=== PATIENT | female | born 1995 | race Caucasian/White ===

== ENCOUNTER → 2016-12-30 10:36 | Emergency (ER) | payer OTHER ==
[~2016-12-30 10:36] MED LIST: Acetaminophen TAB* 325 MG ONE
== END | disposition home or self-care (01) ==
LOC: UCCORT 10:36
DX: O92.29 Other disorders of breast associated with pregnancy and the puerperium (principal); N61.0 Mastitis without abscess; O99.63 Diseases of the digestive system complicating the puerperium; K21.9 Gastro-esophageal reflux disease without esophagitis; O99.53 Diseases of the respiratory system complicating the puerperium; J02.9 Acute pharyngitis, unspecified
CPT/HCPCS: 87070; 87651; 99211; A9270-GY; G0463

== ENCOUNTER 2017-02-05 14:53 | Emergency (ER) | payer OTHER ==
--- NOTE | 2017-02-05 16:02 | UC ---
Skin Complaint HPI - HPI Summary HPI Summary: Rash for the past week. She has seen flees and has pulled a few off of her thighs. It is mainly nir inner thighs and left upper chest. It spares the hands and wrists as well as groin. - History of Current Complaint Time Seen by Provider: 02/05/17 15:49 Stated Complaint: RASH Hx Obtained From: Patient ?: No Onset/Duration: Gradual Onset, Lasting Days Skin Exposure Onset/Duration: Days Ago Onset Severity: Moderate Location: Diffuse Aggravating Factor(s): Touch Alleviating Factor(s): Nothing Associated Signs & Symptoms: Positive: Rash - It is an itchy rash. - Allergy/Home Medications Allergies/Adverse Reactions: Allergies Allergy/AdvReac Type Severity Reaction Status Date / Time No Known Allergies Allergy Verified 02/05/17 15:59 Home Medications: Home Medications NK [No Home Medications Reported] 02/05/17 [History Confirmed 02/05/17] Review of Systems Skin: Rash All Other Systems Reviewed And Are Negative: Yes PMH/Surg Hx/FS Hx/Imm Hx Previously Healthy: Yes - Surgical History Surgical History: None - Family History Known Family History: Positive: Other - no related rashes. - Social History Lives: With Family Physical Exam Triage Information Reviewed: Yes Appearance: Well-Appearing, No Pain Distress, Well-Nourished Vital Signs Reviewed: Yes Eyes: Positive: Conjunctiva Clear ENT: Positive: Normal ENT inspection Neck: Positive: Supple, Nontender, No Lymphadenopathy Respiratory: Positive: Chest non-tender, Lungs clear, Normal breath sounds, No respiratory distress, No accessory muscle use Cardiovascular: Positive: RRR, No Murmur, Pulses Normal, Brisk Capillary Refill Abdomen Description: Positive: Nontender, No Organomegaly, Soft. Negative: Distended, Guarding Musculoskeletal: Positive: Strength Intact, ROM Intact, No Edema Neurological: Positive: Alert, Muscle Tone Normal Skin: Positive: rashes - Nir inner thigh macular papular rash and the same in a patch on the left chest. No hand or wrist involvement. Course/Dx - Course Course Of Treatment: rash without any signs of scabies. It may have started from a couch that she got donated to her from her aunt. - Diagnoses Provider Diagnoses: insect bites. rash. Discharge - Discharge Plan Condition: Good Disposition: HOME Prescriptions: Methylprednisolone [Medrol Dosepak 4 MG*] 4 mg PO .SEE CHASITY INSTRUCTION #21 tab Patient Education Materials: Acute Rash (ED) Referrals: No Primary Care Phys,NOPCP [Primary Care Provider] - Additional Instructions: Calmoseptin may help as well. REturn if this does not improve.
[2017-02-05 16:08] VITALS: BP 116/80
== END 2017-02-05 16:10 | disposition home or self-care (01) ==
LOC: UCCORT 14:53
DX: S70.362A Insect bite (nonvenomous), left thigh, initial encounter (principal); S70.361A Insect bite (nonvenomous), right thigh, initial encounter; S20.362A Insect bite (nonvenomous) of left front wall of thorax, initial encounter; W57.XXXA Bitten or stung by nonvenomous insect and other nonvenomous arthropods, initial encounter; Y93.9 Activity, unspecified; Y92.9 Unspecified place or not applicable; R21 Rash and other nonspecific skin eruption
CPT/HCPCS: 99211; G0463

== ENCOUNTER 2017-11-24 17:09 | Emergency (ER) | payer OTHER ==
--- NOTE | 2017-11-24 17:20 | UC ---
Complaint Female HPI - HPI Summary HPI Summary: 21 yo female presents with urinary burning and frequency for the last week and vaginal discharge for the last 3 days. She has been taking AZO supplements OTC for her urinary symptoms with mild relief for a day or two, but her symptoms will return. Has also noticed some thick white vaginal discharge with itching. She has an IUD in place for about a year and says that she has scant bleeding at random times, but no real period. Denies fever, chills, flank pain, abdominal pain, n/v/d/c, or pelvic pain. - History Of Current Complaint Stated Complaint: URINARY COMPLAINT Time Seen by Provider: 11/24/17 17:20 Hx Obtained From: Patient Hx Last Menstrual Period: IUD Onset/Duration: Gradual Onset Severity Currently: None - Allergies/Home Medications Allergies/Adverse Reactions: Allergies Allergy/AdvReac Type Severity Reaction Status Date / Time No Known Allergies Allergy Verified 11/24/17 17:38 Home Medications: Home Medications Topiramate [Topamax] 25 mg PO BID 11/24/17 [History Confirmed 11/24/17] PMH/Surg Hx/FS Hx/Imm Hx - Additional Past Medical History Additional PMH: None Previously Healthy: Yes - Surgical History Surgical History: None - Family History Known Family History: Positive: None - Social History Occupation: Employed Full-time Lives: With Family Alcohol Use: None Substance Use Type: None Smoking Status (MU): Never Smoked Tobacco - Immunization History Most Recent Influenza Vaccination: NOT CURRENT Review of Systems Constitutional: Negative Skin: Negative Respiratory: Negative Cardiovascular: Negative Gastrointestinal: Negative Genitourinary: Dysuria, Vaginal/Penile Discharge Neurological: Negative Psychological: Negative All Other Systems Reviewed And Are Negative: Yes Physical Exam - Summary Physical Exam Summary: GENERAL: NAD. WDWN. No pain distress. SKIN: No rashes, sores, lesions, or open wounds. NECK: Supple. Nontender. No lymphadenopathy. CHEST: CTAB. No r/r/w. No accessory muscle use. Breathing comfortably and in no distress. CV: RRR. Without m/r/g. Pulses intact. Cap refill <2seconds ABDOMEN: Soft. NTTP. No distention or guarding. No CVA tenderness. Bowel sounds present NEURO: Alert. CN II-XII grossly intact. PSYCH: Age appropriate behavior. Triage Information Reviewed: Yes Vital Signs: Vital Signs: Temp Pulse Resp BP Pulse Ox 98.8 F 82 16 120/84 100 11/24/17 17:32 11/24/17 17:32 11/24/17 17:32 11/24/17 17:32 11/24/17 17:32 Laboratory Tests 11/24/17 17:46 POC Urine Color Yellow POC Urine Clarity Cloudy POC Urine pH 6.0 POC Ur Specif [place] 1.020 POC Urine Protein Negative POC Ur Glucose (UA) Negative POC Urine Ketones Negative POC Urine Blood Trace-intact A POC Urine Nitrite Negative POC Urine Bilirubin Negative POC Urine Urobilinogen 0.2 POC U Leukocyte Esteras 2+ A Vital Signs Reviewed: Yes Pelvic Exam: Positive: External Exam Normal, No Cerv. Motion Tender, No Masses, Discharge - Mild thick white, Other - Jaqui RN assisted with exam. Negative: Active Bleeding, Blood, Cervicitis, Lesions, Mass, Ulcers Complaint Female Dx - Course Course Of Treatment: UA with signs of infection and pelvic exam suggestive for yeast. Pt declines STD testing at this time. Will treat for UTI and yeast infection. F/u prn - Differential Dx/Diagnosis Provider Diagnoses: UTI. Vaginal yeast infection Discharge - Sign-Out/Discharge Documenting (check all that apply): Patient Departure All imaging exams completed and their final reports reviewed: No Studies - Discharge Plan Condition: Stable Disposition: HOME Prescriptions: Fluconazole 150 MG (NF) [Diflucan 150 mg (NF)] 150 mg PO ONCE #2 tab Sulfamethox/Trimethoprim DS* [Bactrim DS 800/160 TAB*] 1 tab PO BID #10 tab Patient Education Materials: Urinary Tract Infection in Women (DC), Yeast Infection (ED) Referrals: Levi Kong MD [Primary Care Provider] - Additional Instructions: If you develop a fever, shortness of breath, chest pain, new or worsening symptoms - please call your PCP or go to the ED. - Billing Disposition and Condition Condition: STABLE Disposition: Home
--- OUTSIDE RECORDS SUMMARY | 2017-11-24 17:24 | XMS REPORT ---
:1995 External Reference #:[id number] Author Organization [facility] Address [address] [place] [address]/[address] [place] [address] Phone [phone] Care Team Providers Name Role Phone Roberto Reyna [employer] Care Team Information [employer] Unavailable Payers Type Date Identification Numbers Payment Provider Subscriber Commercial Effective: Policy Number: [id number] Aaron Doherty 2016 PayID: [id number] [address] [place] [address] [employer] Policy Number: [id number] Medicaid/[facility] Systems Sophia Doherty PayID: [id number] [address] [place] [address] Commercial Effective: 2015 Policy Number: Aaron Care Barbara Doherty [id number] Expires: 2016 PayID: [id number] [address] [place] [id number] Problems Description No Information Family History Date Family Member(s) Problem(s) Comments Mother 42 Mother Thyroid Disease Mother Heart Disease Children 1 SON BORN 12/07/16 Social History Type Date Description Comments Occupation [employer] Use Occasionally consumes alcohol Smoking Patient has never smoked Daily Caffeine Occasionally Allergies, Adverse Reactions, Alerts Date Description Reaction Status Severity Comments 04/16/2016 NKDA active Medications Medication Date Status Form Strength Qnty SIG Indications Ordering Provider Clobetasol 11/12 Active Cream 0.05% 60gm apply to R21 Dilan affected area Ahmad M., twice a day M.D. as needed Topamax 11/12 Active Tablets 50mg 60tab 1 tab by G43.009 s mouth twice a Ahmad M., day M.D. Betamethasone 02/17 Active Cream 0.05% 45gm apply to L20.9 Dilan, Dipropionate affected area Levi Saldana, three times a M.D. day as needed Depo-Provera 01/14 Active Suspension 150mg/ml 1unit 1cc every 3 Z30.42 Dilan s mo Levi Saldana M.D. No Active 04/16 Hx Unknown Medications /2016 - 04/16 Bisacodyl Ec 04/[address] 5mg 30tab Tab 1-2 Q hs K59.00 Dilan, s prn For Levi Saldana - Constipation M.DYolanda 12/15 Pre-Alexander Hx Tablets Z33.1 Unknown Formula / - 12/15 Medications Administered in Office Medication Date Status Form Strength Qnty SIG Indications Ordering Provider Depo Provera Administered Injection Dilan, Injection 018 Levi Saldana M.D. Depo Provera Administered Injection White, Injection 017 Roberto [employer] Vital Signs Date Vital Result Comment 11/12/2017 BP Systolic 114 mmHg BP Diastolic 64 mmHg Height 69 inches 5'9" Weight 220.00 lb BMI (Body Mass Index) 32.5 kg/m2 Heart Rate 102 /min Respiratory Rate 16 /min 04/17/2017 BP Systolic 138 mmHg BP Diastolic 62 mmHg Height 69 inches 5'9" Weight 199.00 lb BMI (Body Mass Index) 29.4 kg/m2 Heart Rate 94 /min Respiratory Rate 16 /min 02/17/2017 BP Systolic 112 mmHg BP Diastolic 62 mmHg Height 69 inches 5'9" Weight 191.00 lb BMI (Body Mass Index) 28.2 kg/m2 Heart Rate 95 /min Respiratory Rate 16 /min 01/14/2017 BP Systolic 102 mmHg BP Diastolic 58 mmHg Height 69 inches 5'9" Weight 184.00 lb BMI (Body Mass Index) 27.2 kg/m2 Heart Rate 76 /min Respiratory Rate 16 /min 04/16/2016 BP Systolic 118 mmHg BP Diastolic 62 mmHg Height 69 inches 5'9" Weight 178.00 lb BMI (Body Mass Index) 26.3 kg/m2 Heart Rate 76 /min Respiratory Rate 16 /min Results Test Date Test Result H/L Range Note Lactic Acid 12/30/2016 Lactic Acid 0.6 mmol/L 0.4-1.9 1 Lab Reflex >2.0 for Sepsis? Y 1 Urinalysis With Microscopic 12/30/2016 Urine Color YELLOW Yellow 1 Urine Clarity CLEAR Clear 1 Urine Glucose - Dipstick NEGATIVE mg/dL Negative 1 Urine Bilirubin - Dipstick MODERATE Negative 1 Urine Ketone 15 mg/dL High Negative 1 Urine Specific Edon 1.010 1.010-1.030 1 Urine Blood LARGE Negative 1 Urine PH 6.0 Low 6.5-7.5 1 Urine Protein - Dipstick 30 mg/dL High Negative 1 Urine Urobilinogen - Dipstick 0.2 E.U./dL 0.2-1.0 1 Urine Nitrite - Dipstick NEGATIVE Negative 1 Urine Leuk Esterase MODERATE Negative 1 Urine RBC 0-2 rbc/hpf 0-2 1 Urine WBC 10-20 wbc/hpf High 0-7 1 Urine Epithelial Cells MANY /lpf None Seen 1, 2 Urine Bacteria FEW None Seen 1 Urine Mucus MODERATE None Seen 1 Source: URINE, CLEAN CAT <SEE NOTE> 1, 3 Urine Culture 12/30/2016 Urine Culture URETHRAL MOSES 1 Quantity > 100,000 CFU/mL 1, 4 CBC 12/06/2016 White Blood Count 9.8 K/uL 3.1-10.7 5 Red Blood Count 4.32 M/uL 3.90-5.40 5 Hemoglobin 11.8 gm/dL 11.6-15.8 5 Hematocrit 36.0 % 36.0-46.1 5 Mean Cell Volume 83.3 fl 80.9-99.0 5 Mean Corpuscular HGB 27.3 pg 25.9-32.7 5 Mean Corpuscular HGB Conc 32.8 g/dL 30.8-34.3 5 Platelet Count 233 K/uL 150-400 5 Red Cell Distri Width %CV 15.2 % High 11.7-14.4 5 Mean Platelet Volume 10.4 fL 8.9-12.4 5 Type And Screen 12/06/2016 Patient Blood Type A NEG 5 Antibody Screen POSITIVE Negative 5 Laboratory test 12/06/[address] 5, 6 finding Laboratory test 12/06/2016 Treponema Antibody Negative Negative 5, 7 finding [place] Laboratory test 11/08/2016 Vaginal Strep Screen NO GROUP B STREP 8, 9 finding <SEE NOTE> Type And Screen 09/25/2016 Patient Blood Type A NEG 10 Antibody Screen POSITIVE Negative 10 Comment: RHIG [id number] 10 Laboratory test finding 09/25/[address] 10 Laboratory test finding 05/08/2016 Lead,Blood (Adult) 1 g/dL 0-19 11, 12 Varicella-Zoster Virus IgG Ab 503 index Immune >165 11, 13 Rubella Igg Antibody 05/08/2016 Rubella IgG Antibody Reactive Reactive 11 Rubella IgG Iu/ml 28.7 IU/mL >=10.0 11, 14 Laboratory test 05/08/2016 Treponema Antibody Nonreactive Nonreactive 11 , 15 finding [place] Hepatitis B Surface Antigen Nonreactive Nonreactive 11, 16 Laboratory test 05/08/2016 Antibody Nonreactive Nonreactive 11, 17 finding Detection-Hiv1/2 SCRN Type And Screen 05/08/2016 Patient Blood Type A NEG 11 Antibody Screen Negative Negative 11 CBS W/Automated Diff 05/08/2016 White Blood Count 7.0 K/uL 3.1-10.7 11 Red Blood Count 4.76 M/uL 3.90-5.40 11 Hemoglobin 14.2 gm/dL 11.6-15.8 11 Hematocrit 41.0 % 36.0-46.1 11 Mean Cell Volume 86.1 fl 80.9-99.0 11 Mean Corpuscular HGB 29.8 pg 25.9-32.7 11 Mean Corpuscular HGB Conc 34.6 g/dL High 30.8-34.3 11 Platelet Count 227 K/uL 155-360 11 Red Cell Distri Width SD 36.8 fl 3-47 11 Red Cell Distri Width %CV 12.1 % 11.7-14.4 11 Mean Platelet Volume 9.8 fL 8.9-12.4 11 Neut% 62.8 % 28.0-68.0 11 Lymph % 30.7 % 20.0-42.0 11 Tucker % 5.4 % 4.3-13.2 11 Eo% 1.0 % 0.0-6.6 11 Bas% 0.1 % 0.0-1.1 11 Neut# 4.39 K/uL 1.8-7.0 11 Lymph # 2.15 K/uL 1.0-4.0 11 Tucker # 0.38 K/uL 0.3-0.9 11 Eos # 0.07 K/uL 0.0-0.5 11 Baso # 0.01 K/uL 0.0-0.1 11 Urine Culture 05/08/2016 Urine Culture URETHRAL MOSES 11 Quantity 10,000 - 50,000 <SEE NOTE> 11, 18 Ua RFX Micro & Culture II 05/08/2016 Urine Color YELLOW Yellow 11 Urine Clarity CLEAR Clear 11 Urine Glucose - Dipstick NEGATIVE mg/dL Negative 11 Urine Bilirubin - Dipstick NEGATIVE Negative 11 Urine Ketone TRACE mg/dL High Negative 11 Urine Specific Edon >=1.030 1.010-1.030 11 Urine Blood NEGATIVE Negative 11 Urine PH 6.0 Low 6.5-7.5 11 Urine Protein - Dipstick NEGATIVE mg/dL Negative 11 Urine Urobilinogen - Dipstick 0.2 E.U./dL 0.2-1.0 11 Urine Nitrite - Dipstick NEGATIVE Negative 11 Urine Leuk Esterase NEGATIVE Negative 11 Source: URINE, CLEAN CAT <SEE NOTE> 11, 19 Drugs Of Abuse-Urine Screen 7 05/08/2016 Amphetamines (Urine) Negative 11 Barbiturates (Urine) Negative 11 Benzodiazepines (Urine) Negative 11 Cannabinoids (Urine) Negative 11 Cocaine Metabolite (Urine) Negative 11 Methadone (Urine) Negative 11 Opiates (Urine) Negative 11 Urine Cutoffs * 11, 20 Chlamydia/GC Vianey 05/08/2016 Chlamydia Trachomatis, Vianey Indeterminant Negative 11 Neisseria Gonorrhoeae, Vianey Indeterminant Negative 11 Please note: (SEE NOTE) 11, 21 Specimen Type: Genital 11 Genital Culture W/ Gram 05/08/2016 Gram Stain GRAM STAIN INDIC <SEE 11 , 22 Stain NOTE> Gram Stain MANY GR POS. ELISEO <SEE NOTE> 11, 23 Gram Stain NO WHITE BLOOD C <SEE NOTE> 11, 24 Genital Culture GENITAL MOSES 11 CBC With Diff 04/16/2016 WBC 6.9 10*3/uL (4.1-11.0) RBC 4.73 10*6/uL (4.00-5.40) HGB 14.1 g/dL (12.0-16.0) HCT 42.5 % (36.0-47.0) MCV 89.9 fL (80.0-95.0) MCH 29.8 pg (27.0-32.0) MCHC 33.2 g/dL (32.0-36.0) RDW 12.6 % (10.5-14.5) PLT 238 10*3/uL (150-450) MPV 8.2 fL (7.1-10.7) Neut % 69.8 % (35.0-75.0) Lymph % 24.9 % (16.0-52.0) Tucker % 4.0 % (0.0-8.0) Eos % 0.9 % (0.0-5.0) Baso % 0.4 % (0.0-4.0) Neut # 4.8 10*3/uL (1.8-7.7) Lymph # 1.7 10*3/uL (1.2-4.8) Tucker # 0.3 10*3/uL (0.0-0.8) Eos # 0.1 10*3/uL (0.0-0.5) Baso # 0.0 10*3/uL (0.0-0.2) CMP 04/16/2016 Sodium 137 mmol/L (136-145) Potassium 3.6 mmol/L (3.6-5.2) Chloride 102 mmol/L (100-108) Co2 27 mmol/L (22-31) Anion Gap 8 mmol/L (7-16) Urea Nitrogen 8 mg/dL (7-24) Creatinine 0.67 mg/dL (0.60-1.00) BUN/Creat Ratio 11.9 RATIO (10.0-20.0) Glucose 106 mg/dL High (70-99) Calcium 8.7 mg/dL (8.4-10.2) Total Protein 6.9 g/dL (6.4-8.2) Albumin 3.9 g/dL (3.5-4.6) Globulin 3.0 g/dL (2.7-4.3) Alb/Glob Ratio 1.3 RATIO Alkaline Phosphatase 80 U/L (45-117) Bilirubin,Total 0.6 mg/dL (0.0-1.0) Ast (Sgot) 15 U/L (11-39) Alt (SGPT) 26 U/L (12-78) GFR >60 ml/min/1.73m2 (>59) GFR ( Amer) >60 ml/min/1.73m2 (>59) GFR Interpretation <SEE NOTE> 25 Hemoglobin A1c 04/16/2016 Hemoglobin A1c @ 4.6 % (4.0-6.0) Est Average Glucose 85 mg/dL 26 Lipid 04/16/2016 Cholesterol @ 189 mg/dL (0-200) Triglyceride @ 106 mg/dL (30-200) HDL Cholesterol @ 38 mg/dL Low (>40) 27 Chol/HDL Ratio 5.0 RATIO 28 LDL Chol (Calc) 130 mg/dL High (<130) 29 Laboratory test finding 04/16/2016 TSH,Ultrasensitive @ 0.773 mIU/L ( 0.463-3.980) 1 FEVER 104 2 POSSIBLE UROGENITAL CONTAMINATION. 3 URINE, CLEAN CATCH 4 > 100,000 CFU/mL 5 MA [id number] 6 Blood Type A NEG 7 Performed at: - [id number] [id number] Orthodontist Vice President: Ephraim Gibbons MD, Phone: [phone] 8 Z3A.33 9 NO GROUP B STREPTOCOCCI ISOLATED 10 Z34.02 11 Z34.01 12 Environmental Exposure: WHO Recommendation <20 Occupational Exposure: OSHA Lead Std 40 PAULA 30 Detection Limit=1 13 Negative <135 Equivocal 135 - 165 Positive >165 A positive result generally indicates exposure to the pathogen or administration of specific immunoglobulins, but it is not indication of active infection or stage of disease. Performed at: - [facility] [id number] Orthodontist Vice President: Alta Buchanan MD, Phone: [phone] 14 Values >=10.0 IU/mL are positive for IgG antibodies to rubella virus and are considered IMMUNE. 15 Please Note: A nonreactive test result does not exclude the possibility of exposure to, or infection with syphilis. T. pallidum antibodies may be undetectable in some stages of the infection and in some clinical conditions. 16 HBsAg not detected; does not exclude the possibility of exposure to or early acute infections with HBV. 17 NOTE: A NON-REACTIVE RESULT INDICATES THAT HIV-1 AND HIV-2 ANTIBODIES HAVE NOT BEEN FOUND IN THIS PATIENT SPECIMEN. A NON-REACTIVE RESULT, HOWEVER, DOES NOT PRECLUDE PREVIOUS EXPOSURE OF INFECTION WITH HIV. * [place] STATE LAW PROHIBITS THE REDISCLOSURE OF THIS RESULT * * TO ANY UNAUTHORIZED LIBERTARIAN. * 18 10,000 - 50,000 CFU/mL 19 URINE, CLEAN CATCH 20 URINE SPECIMENS ARE SCREENED AT THE LISTED CUTOFFS DRUG CLASS INITIAL TEST LEVEL Amphetamines 1000 ng/mL Barbiturates 200 ng/mL Benzodiazepines 200 ng/mL Cannabinoids 50 ng/mL Cocaine Metabolite 300 ng/mL Methadone 300 ng/mL Opiates 300 ng/mL Any PRESUMPTIVE POSITIVE findings are UNCONFIRMED. Confirmatory testing is suggested if findings are unexpected. Please contact laboratory if confirmatory testing is desired. SPECIMENS ARE HELD FOR 72 HOURS. 21 Unable to determine results due to possible interfering substance. Specimen recollection is recommended if clinically indicated. A negative result for either C. trachomatis and/or N. gonorrhoeae does not preclued an infection because results are dependent on adequate specimen collection, absence of inhibitors, and sufficient DNA to be detected. A negative result for either C. trachomatis and/or N. gonorrhoeae does not preclued an infection because results are dependent on adequate specimen collection, absence of inhibitors, and sufficient DNA to be detected. 22 GRAM STAIN INDICATES NORMAL GENITAL MOSES 23 MANY GR POS. BACILLI SUGGESTIVE OF LACTOBACILLUS SP. 24 NO WHITE BLOOD CELLS 25 NORMAL KIDNEY FUNCTION OR MILD DISEASE - GFR >OR=60 CHRONIC KIDNEY DISEASE - GFR 15 - 59 RENAL FAILURE - GFR <15 Est. GFR calculation based on the MDRD study equation, which assumes a steady state for creatinine. Est. GFR should not be used for medication dosing. 26 HEMOGLOBIN A1c INTERPRETATION: 4.0-6.0% GOOD GLYCEMIC CONTROL 6.1-6.5% AT RISK FOR HYPERGLYCEMIA >6.5% DIABETIC/ POOR GLYCEMIC CONTROL REFERENCE: DIABETES CARE 32(7), 2008 IF A1c RESULT IS INCONSISTENT WITH CLINICAL ESTIMATES OF GLYCEMIC CONTROL, AN INTERFERING Hb VARIANT SHOULD BE CONSIDERED. 27 PER NCEP ATP III GUIDELINES: RESULTS LOWER THAN 40 MG/DL ARE SUGGESTIVE OF INCREASED RISK FOR CORONARY ARTERY DISEASE. RESULTS > OR=TO 60 MG/DL ARE CONSIDERED A NEGATIVE RISK FACTOR. 28 INTERPRETATION OF CHOL-HDL RATIO CHD RISK FEMALE MALE VERY HIGH >8.3 >14.3 HIGH 5.6- 8.3 6.7- 14.3 AVERAGE 3.7- 5.6 4.0- 6.7 BELOW AVERAGE 2.5- 3.7 2.7- 4.0 PROTECTED <2.5 <2.7 29 PER NCEP ATP III GUIDELINES: OPTIMAL < 100 NEAR OPTIMAL 100 - 129 BORDERLINE HIGH 130 - 159 HIGH 160 - 189 VERY HIGH > 189 Procedures Date CPT Code Description Status 04/17/2017 87540 Injection DX/Therapeutic/Prophy Completed 01/14/2017 64618 Injection DX/Therapeutic/Prophy Completed 04/16/2016 22127 Visual Screening Test Completed 04/16/2016 13736 Audiometry, Bekesy, Screening Completed Encounters Type Date Location Provider CPT E/M Dx Office Visit 11/12/2017 4:30p Levi Diaz M.D. 47134 L20.9 J30.9 Z30.42 E66.3 G43.009 R21 L50.9 Office Visit 04/17/2017 9:15a Levi Diaz M.D. 04818 L20.9 J30.9 Z30.42 E66.3 Office Visit 02/17/2017 9:30a Levi Diaz M.D. 66792 L20.9 J30.9 R21 L50.9 Z30.42 Office Visit 01/14/2017 11:45a Roberto Lay [facility] [address] Z39.2 Z30.42 Office Visit 04/16/2016 10:15a Roberto Lay [facility] [address] Z33.1 K59.00 Z00.01 Plan of Care 11/12/2017 - Levi Kong M.D.L20.9 Atopic dermatitis, unspecifiedComments: SKIN CARE INSTRUCTIONS LOTION OR BABY OIL 2-3 APPLICATION PER DAYUSE MOISTURIZING SOAPAVOID PROLONGED WATER EXPOSUREAVOID USING HOT WATER IN GJPEUXL75.9 Allergic rhinitis, unspecifiedComments:INCREASE PO FLUID USE ANTIHISTAMINE PRN SECOND HAND SMOKING [id number] Encounter for surveillance of injectable contraceptiveComments:CONTINUE RX F/U WITH OB/ GYNNE66.3 OverweightComments:EXERCISE REGURALYDIET WOETDCPSLMJI81.009 Migraine w /o aura, not intractable, w/o status migrainosusNew Medication:Topamax 50 mgComments:TYLENOL OR MOTRIN PRNRELAXATION/AVOID STRESSORSFollow up:3 fmgcyrE89 Rash and other nonspecific skin eruptionNew Medication:Clobetasol Propionate 0.05 %Comments:SKIN CARE INSTRUCTIONS LOTION OR BABY OIL 2-3 APPLICATION PER DAYUSE MOISTURIZING SOAPAVOID PROLONGED WATER EXPOSUREAVOID USING HOT WATER IN SHOWERReferral:Arjun Turpin MD, FkfalkraplxZ43.9 Urticaria, unspecifiedComments:SKIN CAREAVOID ITCHING/SCRATCHING SKINLOTION PRN BENEDRYL/ ANTIHISTAMINE PRN
[2017-11-24 17:37] VITALS: BP 120/84
--- NOTE | 2017-11-26 12:27 | UC ---
- Progress Note Progress Note: urine culture neg d/c bactrim + frandy - pt on diflucan + gardnerella- Rx flagyl sent to pharmacy please update pt ljj Discharge - Sign-Out/Discharge Documenting (check all that apply): Post-Discharge Follow Up All imaging exams completed and their final reports reviewed: No Studies - Discharge Plan Condition: Stable Disposition: HOME Prescriptions: Fluconazole 150 MG (NF) [Diflucan 150 mg (NF)] 150 mg PO ONCE #2 tab Sulfamethox/Trimethoprim DS* [Bactrim DS 800/160 TAB*] 1 tab PO BID #10 tab Patient Education Materials: Urinary Tract Infection in Women (DC), Yeast Infection (ED) Referrals: Levi Kong MD [Primary Care Provider] - Additional Instructions: If you develop a fever, shortness of breath, chest pain, new or worsening symptoms - please call your PCP or go to the ED. - Billing Disposition and Condition Condition: STABLE Disposition: Home
== END 2017-11-24 18:11 | disposition home or self-care (01) ==
LOC: UCCORT 17:09
DX: N39.0 Urinary tract infection, site not specified (principal); B37.3 Candidiasis of vulva and vagina; N76.0 Acute vaginitis; B96.89 Other specified bacterial agents as the cause of diseases classified elsewhere
CPT/HCPCS: 81003; 87086; 87480; 87510; 99212; G0463

== ENCOUNTER 2019-06-23 13:54 | Emergency (ER) | payer OTHER ==
--- OUTSIDE RECORDS SUMMARY | 2019-06-23 14:01 | XMS REPORT | Continuity of Care Document ---
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 Berry PA Onset: 04/02/2018 limb Open wound of knee and/or leg and/or ankle Shayna Berry PA Onset: 2017 Social History Type Date Description Comments Sex Unknown Tobacco Use Start: Unknown Never Smoked Cigarettes ETOH Use Occasionally consumes alcohol Recreational Drug Use Never Used Drugs Tobacco Use Start: Unknown Patient denies history of smoking Smoking Status Reviewed: 04/30/19 Patient denies history of smoking Allergies, Adverse Reactions, Alerts Description No Known Drug Allergies Medications Active Medications SIG Qnty Indications Ordering Date Provider Amitriptyline HCL 1 tab by mouth 30tabs G43.909 Kaykay Reynolds, 2018 25mg at bedtime , PHD Tablets Jaclyn Expires 07/17/20 Kaykay Reynolds, 11/18/2018 13.5mg IUD , PHD Magnesium Gluconate 1 tab by mouth 90tabs G43.909 Kaykay Reynolds, 2018 500mg every day , PHD Tablets Co Q-10 Maximum 1 caps by mouth 90caps G43.909 Kaykay Reynolds, 11/18/2018 Strength every day PHD YARELY 400mg Capsules Vitamin B-6 1 by mouth every 30tabs G43.909 Kaykay Reynolds, 11/18/2018 25mg Tablets day PHD YARELY Metoclopramide HCL 5 ml by mouth as 1000ml G43.909 Kaykay Reynolds, 2018 needed for PHD YARELY 10mg/10ML Solution migraine and nausea, MDD 15ml History Medications No Active Medications Unknown 11/18/2018 - 11/18/2018 Amitriptyline HCL 1 tab by mouth 30tabs G43.909 Kaykay Reynolds, 2018 - 10mg every day PHD YARELY 12/04/2018 Tablets Immunizations Description No Information Available Vital Signs Date Vital Result Comment 04/30/2019 9:45am BP Systolic Sitting Right Arm 137 mmHg BP Diastolic Sitting Right Arm 78 mmHg 04/30/2019 9:44am Weight 194.00 lb Results Test Acquired Date Facility Test Result H/L Range Note CBC 11/18/2018 [facility] White Blood 6.2 K/uL Normal 3.1-10.7 1 W/Automated [address] Count Diff [place], [place] [id number] [phone] Red Blood Count 5.16 M/uL Normal 3.90-5.40 Hemoglobin 15.4 gm/dL Normal 11.6-15.8 Hematocrit 45.0 % Normal 36.0-46.1 Mean Cell Volume 87.2 fl Normal 80.9-99.0 Mean Corpuscular HGB 29.8 pg Normal 25.9-32.7 Mean Corpuscular HGB Conc 34.2 g/dL Normal 30.8-34.3 Platelet Count 274 K/uL Normal 155-360 Red Cell Distri Width SD 38.5 fl Normal 36-47 Red Cell Distri Width %CV 12.0 % Normal 11.7-14.4 Mean Platelet Volume 10.1 fl Normal 8.9-12.4 Neut% 58.4 % Normal 40.4-72.8 Lymph % 32.6 % Normal 20.0-42.0 [place] % 5.8 % Normal 4.3-13.2 Eo% 2.4 % Normal 0.0-6.6 Bas% 0.5 % Normal 0.0-1.1 Immature Grans 0.3 % Normal 0.0-5.0 NRBC % 0.0 /100WBC < 10/ 100 WBC Neut# 3.60 K/uL Normal 1.8-7.0 Lymph # 2.01 K/uL Normal 1.0-4.0 [place] # 0.36 K/uL Normal 0.3-0.9 Eos # 0.15 K/uL Normal 0.0-0.5 Baso # 0.03 K/uL Normal 0.0-0.1 Immature Grans Absolute 0.02 K/uL NRBC # 0.00 K/uL Comprehensive 11/18/2018 [facility] Glucose 92 mg/dL Normal 74-106 Metabolic Panel [address] [place] [address] [phone] BUN 9 mg/dL Normal 7-18 Creatinine 0.7 mg/dL Normal 0.6-1.3 Glom Filtration Rate, Estimate >60 mL/min >60 If >60 mL/min >60 2 BUN/Creat 12.8 ratio Sodium 138 mmol/L Normal 136-145 Potassium 4.0 mmol/L Normal 3.5-5.1 Chloride 109 mmol/L High 98-107 Carbon Dioxide 22 mmol/L Normal 21-32 Anion Gap 7 mEq/L Low 8-16 Calcium 9.1 mg/dL Normal 8.5-10.1 Total Protein 7.7 g/dL Normal 6.4-8.2 Albumin 3.9 g/dL Normal 3.4-5.0 Globulin 3.8 g/dL Normal 1.9-4.3 Alb/Glob 1.0 ratio Bilirubin,Total 0.4 mg/dL Normal 0.2-1.0 Sgot/Ast 13 U/L Low 15-37 3 SGPT/Alt 33 U/L Normal 12-78 Alkaline Phosphatase 102 U/L Normal 45-117 Direct LDL 11/18/2018 [facility] LDL Chol. 130 High 0-99 [address] (Direct) mg/[place] [address] [phone] Glycohemoglobin 11/18/2018 [facility] Glycohemoglobin 4.9 % Normal 4.2-6. [address] (A1c) 3 [place] [address] [phone] eAG 94 mg/dL Laboratory test 11/18/2018 [facility] Thyroid 0.69 Normal 0.30-4.[address] Stim uIU/[place] [address] Hormone [phone] C-Reactive Protein,Quant < 3.0 mg/L <3.0 Sedimentation Rate 18 mm/hr Normal 2-40 6 1 E66.9 G43.909 Z82.71 2 Note: Persistent reduction for 3 months or more in an eGFR <60 mL/min/1.73 m2 defines CKD. Patients with eGFR values >/=60 mL/min/1.73 m2 may also have CKD if evidence of persistent proteinuria is present. The original MDRD equation for estimated GFR is not valid for patients less than 18 years of age. Additional information may be found at www.kdoqi.org. 3 Values below the stated reference ranges of AST and ALT can be seen in normal populations. Clinical correlation is suggested. 4 Performed at: RN - [facility] [address] [id number] Bulk Mail Technician: Alta Buchanan MD, Phone: [phone] 5 Elevated levels of HbA1c suggest the need for more aggressive treatment of glycemia. The [place] [employer] recommends that a primary goal of therapy should be a HbA1c of <7% and that physicians should re-evaluate the treatment regimen in patients with HbA1c values consistently >8%. 6 This result was obtained with an ESR method that is not based on the standard Westergren Method. When comparing results obtained from the traditional Westergren ESR and this method it is important to refer to the reference range for each method. 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 Office Visit 03/18/2019 Orthopaedic Shayna Berry, S81.012D Laceration 1:45p Office PA without foreign body, left knee, subs encntr M25.562 Pain in left knee 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 Office Visit 02/25/2019 1:30p [facility]opa[facility] Office Shayna Berry, M25.562 Pain in PA left knee 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 S81.012D Laceration without foreign body, left knee, subs encntr Office Visit 12/04/2018 1:45p Family Medicine Gail G43.909 mary jane [address] [place], MD, not intractable, PHD without status migrainosus R21 Rash and other nonspecific skin eruption Office Visit 11/18/2018 11:00a Family Medicine Jose Alfredo Reynolds3.909 mary jane [address] [place], MD, not intractable, PHD without status migrainosus E66.9 Obesity, unspecified Z82.71 Family history of polycystic kidney J00 Acute nasopharyngitis [common cold] Assessments Date Code Description Provider 04/30/2019 S81.012D Laceration without foreign body, left Shayna Berry, PA knee, subsequent encou 04/30/2019 M25.562 Pain in left knee JamalMalachiin, PA 04/30/2019 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 Jamal Shayna, PA lower limb 03/18/2019 S81.012D Laceration without foreign body, left JamalMalachiin, PA knee, subsequent encou 03/18/2019 M25.562 Pain in left knee Jamal, Shayna, PA 03/18/2019 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 Jamal, Shayna, PA lower limb 02/25/2019 M25.562 Pain in left knee Jamal Shayna, PA 02/25/2019 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 Jamal, Shayna, PA lower limb 02/25/2019 S81.012D Laceration without foreign body, left Shayna Berry, PA knee, subsequent encou 12/04/2018 G43.909 Migraine, unspecified, not intractable, Kaykay Reynolds MD, PHD without status migrainosus 12/04/2018 R21 Rash and other nonspecific skin eruption Kaykay Reynolds MD , PHD 11/18/2018 G43.909 Migraine, unspecified, not intractable, Kaykay Reynolds MD, PHD without status migrainosus 11/18/2018 E66.9 Obesity, unspecified Kaykay Reynolds MD, PHD 11/18/2018 Z82.71 Family history of polycystic kidney Kaykay Reynolds MD, PHD 11/18/2018 J00 Acute nasopharyngitis [common cold] Kaykay Reynolds MD, PHD Plan of Treatment Future Appointment(s):03/10/2020 10:00 am - Shayna Berry PA at [facility]/30/2019 - Shayna Berry, PAS81.012D Laceration without foreign body, left knee, subsequent encouComments:I have explained to her that we have exhausted conservative management. If the pain is continuing to bother her that I recommend follow-up with her surgeon to discuss a possible diagnostic arthroscopy. Patient states that it is not bothering her that much. She'll continue with the brace, ice and rest when able. She will follow up on an as- needed basis for the knee.M25.562 Pain in left knee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Comments:Patient should follow up in 1 year for follow-up x-rays to monitor for no changes in the osteochondromas.AllComments:1 year follow up for Xrayinj last visit help short termnot want surgery Functional Status Functional Condition Comment Date Status Independent with all ADL's Active Mental Status Description No Information Available Referrals Refer to Reason for Referral Status Appt Date Reji Solorio MD Daily Migraines - has an appointment already Closed 12/[address] Solorio on - please send form for continuity of care. [address] [place] [address] [phone]
[2019-06-23 14:11] VITALS: BP 121/87
[2019-06-23 14:29] LABS: Influenza A Molecular Negative (Negative); Influenza B Molecular Negative (Negative)
--- NOTE | 2019-06-23 14:41 | UC ---
Throat Pain/Nasal Dawson HPI - HPI Summary HPI Summary: 23-year-old woman comes in with chief complaint of upper respiratory tract infection symptoms for one day. Scar little bit of rhinorrhea. Does have postnasal drip. She had chills this morning. When she went to work they said she had an elevated temperature in the range of 99. No shortness of breath. The postnasal drip does make her cough. Her son was diagnosed with influenza 3 days ago. - History of Current Complaint Chief Complaint: UCGeneralIllness Stated Complaint: COUGH,FEVER Time Seen by Provider: 06/23/19 13:58 Hx Last Menstrual Period: IUD Pain Intensity: 0 - Allergies/Home Medications Allergies/Adverse Reactions: Allergies Allergy/AdvReac Type Severity Reaction Status Date / Time No Known Allergies Allergy Verified 06/23/19 14:11 Home Medications: Home Medications Ibuprofen TAB* [Motrin TAB* 400 MG] 400 mg PO Q6H PRN 06/23/19 [History Confirmed 06/23/19] PMH/Surg Hx/FS Hx/Imm Hx Previously Healthy: Yes - Surgical History Surgical History: None - Family History Known Family History: Positive: None, Other - no related rashes. - Social History Alcohol Use: Occasionally Substance Use Type: None Smoking Status (MU): Never Smoked Tobacco - Immunization History Most Recent Influenza Vaccination: NOT CURRENT Review of Systems All Other Systems Reviewed And Are Negative: Yes Constitutional: Positive: Other - see hpi Skin: Positive: Negative Eyes: Positive: Negative ENT: Positive: Nasal Discharge, Other - see hpi Respiratory: Positive: Cough - see hpi Cardiovascular: Positive: Negative Gastrointestinal: Positive: Negative Motor: Positive: Negative Neurovascular: Positive: Negative Musculoskeletal: Positive: Negative Neurological/Mental Status: Positive: Negative Psychological: Positive: Negative Is Patient Immunocompromised?: No Physical Exam Triage Information Reviewed: Yes Appearance: Well-Appearing, No Pain Distress, Well-Nourished Vital Signs: Initial Vital Signs Temp 98.9 F 06/23/19 14:08 Pulse 107 06/23/19 14:08 Resp 15 06/23/19 14:08 BP 121/87 06/23/19 14:08 Pulse Ox 97 06/23/19 14:08 Vital Signs Reviewed: Yes Eye Exam: Normal Eyes: Positive: Conjunctiva Clear ENT: Positive: Pharynx normal, Nasal congestion, TMs normal Neck: Positive: Supple Respiratory: Positive: Lungs clear, Normal breath sounds, No respiratory distress Cardiovascular: Positive: RRR Musculoskeletal: Positive: Strength Intact, ROM Intact Neurological: Positive: Alert, Muscle Tone Normal Psychological: Positive: Age Appropriate Behavior Skin Exam: Normal Throat Pain/Nasal Course/Dx - Differential Dx/Diagnosis Provider Diagnosis: Upper respiratory infection Discharge ED - Sign-Out/Discharge Documenting (check all that apply): Patient Departure All imaging exams completed and their final reports reviewed: No Studies - Discharge Plan Condition: Stable Disposition: HOME Patient Education Materials: Upper Respiratory Infection (ED) Forms: *Work Release Referrals: Kaykay Reynolds MD [Primary Care Provider] - Additional Instructions: FOLLOW UP WITH YOUR DOCTOR IF NOT COMPLETELY IMPROVED. GET REEVALUATED IF NOT IMPROVING OR WORSE OR ANY QUESTIONS OR CONCERNS. - Billing Disposition and Condition Condition: STABLE Disposition: Home
== END 2019-06-23 14:45 | disposition home or self-care (01) ==
LOC: UCCORT 13:54
DX: J06.9 Acute upper respiratory infection, unspecified (principal)
CPT/HCPCS: 87651; 99211; G0463